=== PATIENT | male | born 1955 | race Hispanic/Latino ===

== ENCOUNTER 2021-10-13 08:27 | Day surgery (SDC) | payer MEDICARE ==
[2021-10-13 09:06] LABS: Hematocrit 31.1 % (35.5-45.6); Hemoglobin 9.8 gm/dl (11.8-15.2); Mean Corpuscular HGB Conc 32 % (32-34); Mean Corpuscular Volume 84 fl (84-94); Platelet Count 457 K/mm3 (140-440); Red Blood Count 3.71 M/mm3 (3.65-5.03); Red Cell Distribution Width 19.1 % (13.2-15.2)
[2021-10-13 09:23] LABS: INR 2.42 (0.87-1.13)
[2021-10-13 09:26] LABS: BUN/Creatinine Ratio 21; Blood Urea Nitrogen 17 mg/dL (9-20); Calcium 8.5 mg/dL (8.4-10.2); Hemolysis Index 13
[2021-10-13] MEDS ORDERED: HEPARIN/NS 5000 UNIT/500ML 1,000 ML IR ONE (09:41)
[2021-10-13] MEDS ORDERED: HEPARIN 10,000 UNITS/10 ML VIAL ONE (09:41)
[2021-10-13] MEDS: SODIUM CHLORIDE 0.9% 500 ML 500 ML IV SCH ×2 (09:52→10:19)
[2021-10-13] MEDS ORDERED: LIDOCAINE (2%) 20 MG/1 ML VIAL 20 ML MDV INFILTRATI ONE (09:55)
[2021-10-13] MEDS: MIDAZOLAM 2 MG/2 ML INJ ONE ×6 (10:16→12:16)
[2021-10-13] MEDS: fentaNYL 100 MCG/2 ML INJ ONE ×4 (10:18→11:40)
[2021-10-13] MEDS ORDERED: HEPARIN/NS 5000 UNIT/500ML 500 ML IR ONE ×2 (11:11→11:59)
[2021-10-13] MEDS ORDERED: ALTEPLASE 2 MG INJ ONE (11:25)
[2021-10-13] MEDS ORDERED: MIDAZOLAM 2 MG/2 ML INJ ONE (12:02)
--- NOTE | 2021-10-13 13:02 | Short Stay Summary ---
Short Stay Documentation Date of service: 10/13/21 - History Principal diagnosis: Extensive DVT H&P: obtained from office - Allergies and Medications Current Medications: Allergies shellfish derived Allergy (Verified 10/13/21 08:54) Hives BEE STING Allergy (Uncoded 10/13/21 09:20) Hives Home Medications Medication Instructions Recorded Confirmed Last Taken Type Adults Multivitamin Tablet 1 tab PO DAILY 10/13/21 10/13/21 10/12/21 History Cholecalciferol Vit D3 [Vitamin D3 1,000 unit PO QDAY 10/13/21 10/13/21 10/12/21 History 1,000 UNIT TAB] Rivaroxaban [Xarelto] 2.5 mg PO BID 10/13/21 10/13/21 10/13/21 07:00 History Vit C/Ascorb Sod/Multivit-Min 500 mg PO DAILY 10/13/21 10/13/21 10/12/21 History Active Medications Sodium Chloride (Nacl 0.9% 500 Ml) 500 mls @ 50 mls/hr IV DIRECT DEBBI Stop: 10/13/21 23:00 Last Admin: 10/13/21 10:19 Dose: 50 mls/hr - Brief post op/procedure progress note Date of procedure: 10/13/21 Pre-op diagnosis: DVT Post-op diagnosis: same Procedure: Thrombectomy, IVC filter placement Anesthesia: local Surgeon: MARIA GUADALUPE CONRAD Estimated blood loss: minimal Pathology: none Condition: stable - Disposition Condition at discharge: Good Disposition: 01 HOME / SELF CARE / HOMELESS Short Stay Discharge Plan Activity: advance as tolerated Weight Bearing Status: Weight Bear as Tolerated Diet: regular Wound: keep clean and dry, per your surgeon's advice Follow up with: MARIA GUADALUPE CONRAD MD [Primary Care Provider] - 7 Days
--- NOTE | 2021-10-13 13:13 | Operative Report ---
Operative Report Operative Report: Exam: Ultrasound and fluoroscopic guided placement of IVC filter, mechanical and pharmacological thrombectomy of left lower extremity Clinical indication: Patient with an extensive symptomatic DVT that extends from the common femoral vein distally. Date: 10/13/2021 Procedure: Following an explanation of the risks, benefits and alternatives; written informed consent was obtained. The patient was brought to the angiographic suite and placed in supine position on the examination table. Initial ultrasound evaluation of the patient's right groin was performed in the right common femoral vein is widely patent. The patient's right groin was prepped and draped in the usual sterile fashion. 1% lidocaine was used for anesthesia. Under ultrasound guidance, a 7 cm 18-gauge needle was advanced into the right common femoral vein. A 0.035 guidewire was advanced centrally. The needle was removed and a 5 Greek sheath placed. A C2 catheter was advanced over the guidewire and together the catheter and guidewire used to cross the bifurcation into the left common iliac vein. The C2 catheter was exchanged for a vertebral catheter and together the vertebral catheter and guidewire advanced into the left distal external iliac vein. Contrast was injected. This demonstrates that the extensive clot is to the level of the inguinal ligament on the left. The catheter and guidewire were then withdrawn proximally. Angiography of the IVC was performed. The IVC was noted to be prominent in size and a decision was made to perform intravascular ultrasound. The sheath was exchanged for an 8 Greek sheath. Intravascular ultrasound fiber was then advanced over the guidewire and together guidewire and catheter advanced into the IVC. Imaging was obtained from the suprarenal IVC into the right common iliac vein. Size measurements were made at multiple locations and an appropriate size criteria is present to allow IVC filter placement. The intravascular ultrasound fiber was then removed. Contrast was injected to document the level of the lowest renal veins which appears to be at the inferior endplate of L2. The sheath was exchanged for an 11 Greek IVC filter introducer sheath which was advanced over the guidewire to the IVC. The trocar and guidewire were removed. A [employer] IVC filter was then advanced through the sheath and the sheath proximal lysed to deployed the filter with the tip of the filter at the superior endplate of L3. Contrast was injected which demonstrates appropriate positioning with no significant tilt. The sheath was then securely fastened to the right groin using 2-0 Ethilon suture and sterile dressings applied. The patient was then unprepped and placed in prone position. Initial ultrasound evaluation of the patient's left popliteal fossa demonstrate thrombus in the popliteal vein. There are also multiple areas of thrombosed varicosities. This clot appears to be chronic in nature with subacute to acute portions as well. At the patient's popliteal fossa on the left was prepped and draped in the usual sterile fashion. Additional lidocaine was used for anesthesia. The left popliteal vein was cannulated with a 7 cm 18-gauge needle. A 0.035 guidewire was then advanced centrally. The needle was removed and a vertebral catheter advanced over the guidewire to the iliacs. Contrast was injected which demonstrates true luminal positioning of the catheter within the iliac veins. The catheter was then withdrawn proximally which demonstrates that the superior extent of the thrombus is at the inguinal ligament. 80 to 90% stenosis is present in the common iliac vein at the bifurcation with a separate 70 to 80% stenosis in the mid external iliac vein secondary to extrinsic compression. Additionally, significant compression is noted at the level of the inguinal ligament. The bifurcation was then crossed using an Omni Flush catheter and guidewire and the guidewire advanced to the right popliteal vein. 4 mg of TPA was infused through the sheath. The 8 Greek sheath was then exchanged for a clot Treiber introducer sheath and final. In an artery clot Treiber was then advanced over the guidewire under fluoroscopy. The catheter was opened in the external iliac vein on the left. 3 passes were made from the external iliac vein to the popliteal vein to debulk as much clot as possible. There is a significant area of stenosis in the proximal superficial femoral vein which was treated using angioplasty with an 8 mm balloon. A vertebral catheter was then advanced alongside the wire to avoid contrast injection through the clot Treiber sheath. Images were obtained which again demonstrate stenosis in the left common iliac vein, separately left external iliac vein and separately distal external iliac vein to the level of the inguinal ligament. Only a minimal amount of residual thrombus is identified. There is significant venous flow out of the sheath as well. At this point, the catheters, guidewires and sheaths were removed and hemostasis achieved in both the left popliteal fossa and right groin using manual compress ion. Pressure dressings were then applied. The patient tolerated the procedure well. There were no immediate postprocedure complications. Conscious sedation was performed under the guidance of radiologic nursing. Continuous cardiopulmonary monitoring was utilized. Impression: 1) Ultrasound fluoroscopic and IVUS guided placement of infrarenal IVC filter. 2) Mechanical and pharmacological thrombectomy of left leg from the common femoral vein to the popliteal vein. 3) Venography of the IVC, common iliac veins, external iliac veins and common femoral veins demonstrating of flow-limiting stenosis within the left common iliac vein, left external iliac vein and distal left external iliac vein as well as right common iliac vein and right distal external iliac vein. 4) The patient will return to clinic and ultimately be scheduled for evaluation and venoplasty with stent placement to reduce the lesions in his common and external iliac veins. Following this, the patient will benefit from removal of his IVC filter
[2021-10-13 14:31] VITALS: BP 113/67
== END 2021-10-13 15:05 | disposition home or self-care (01) ==
LOC: CATH 08:27
PROVIDERS: ATTEND Radiology Diagnostic Radiology
DX: I82.412 Acute embolism and thrombosis of left femoral vein (principal); I87.1 Compression of vein; M19.90 Unspecified osteoarthritis, unspecified site; Z86.718 Personal history of other venous thrombosis and embolism; Z91.013 Allergy to seafood; Z88.8 Allergy status to other drugs, medicaments and biological substances; Z79.899 Other long term (current) drug therapy; Z98.890 Other specified postprocedural states; Z82.61 Family history of arthritis
CPT/HCPCS: 36415; 37187; 37191; 75822; 80048; 85027; 85610; 99156; 99157; C1725; C1751; C1753; C1757; C1769; C1880; C1887; C1894; J1644; J2250; J2997; J3010; J3490; J7040; 37252; 76937; Q9967